=== PATIENT | female | born 1960 | race Caucasian/White ===

== ENCOUNTER → 2016-12-13 09:54 | Outpatient (CLI) | payer MEDICAID ==
[2016-04-30 09:56] VITALS: BMI 49.6
[~2016-12-13 09:54] MED LIST: BUPROPION HCL150 M1 PO; GLUCOPHAGE1000 MG PO; GLUCOTROL ER2.5 MG PO; HYDROCHLOROTHIA25 MG PO; LOTREL 5/20 MG1 CAP; PRAVACHOL20 MG PO; VOLTAREN75 MG PO
== END | disposition home or self-care (01) ==
LOC: D.US 12-10 14:00
DX: R60.0 Localized edema (principal)

== ENCOUNTER 2017-03-07 10:26 | Outpatient (CLI) | payer MEDICAID ==
[~2017-03-07] VITALS: Ht 170.2 cm; Wt 150.0 kg
--- NOTE | ~2017-03-07 | HEMODYNAMI ---
PATIENT:ROCIO ESQUIVEL MEDICAL RECORD: [id number] : 56 LOCATION:D.CAT ADMISSION DATE: 03/07/17 Generatedon:03/07/201714:08 Patient name: ROCIO ESQUIVEL Patient #: [id number] SSN: : 1960 Date of study: 03/07/2017 Page: Of Hemodynamic Procedure Report Patient Data Patient Demographics Procedure consent was obtained First Name: ROCIO Gender: Female Last Name: ALVIN : 1960 Middle Initial: E Age: 57 year(s) Patient #: [id number] Race: Unknown Additional ID: [id number] Contact details [address]: [address] [place] [address] State: [place] City: [place] Zip code: [address] Past Medical History Allergies: No known allergies Admission Admission Data Admission Date: 03/07/2017 Admission Time: 10:26 Lab Results Lab Result Date: 03/07/2017 Lab Result Time: 0:10 Biochemistry Name Units Result Min Max BUN mg/dl 18 --(---*)-- 7 18 Creatinine mg/dl 1.1 --(--*-)-- 0.6 1.3 CBC Name Units Result Min Max Hematocrit % 34.9 *-(----)-- 42 54 Hemoglobin g/dl 11.6 *-(----)-- 13.5 17.5 Procedure Procedure Types Cath Procedure Diagnostic Procedure [facility] w/Coronaries Miscellaneous Procedures Moderate Sedation up to 30 minutes Procedure Description Procedure Date Procedure Date: 03/07/2017 Procedure Start Time: 13:51 Procedure End Time: 14:08 Procedure Staff Name Function Nathan Mcmahon MD Performing Physician Kaye Ji RT Scrub Harrison Nelson RT Scrub Greg Tee RN Nurse Marion Jewell RT Monitor Agustin Thomas RT Monitor Procedure Data Cath Procedure Fluoroscopy Diagnostic fluoroscopy Total fluoroscopy Time: 4.3 time: 4.3 min min Diagnostic fluoroscopy Total fluoroscopy dose: 920 dose: 920 mGy mGy Contrast Material Contrast Material Type Amount (ml) Isovue 300 67 Entry Location Entry Primary Successful Side Size Upsize Upsize Entry Closure Olvera ccessful Closure Location (Fr) 1 (Fr) 2 (Fr) Remarks Device Remarks Radial Right 6 Fr Mechanical artery Short Compression Estimated blood loss: 5 ml Diagnostic catheters Device Type Used For End Catheter Placement Diagnostic Terumo 5Fr Procedure [place] 110cm catheter Diagnostic Infinity 5Fr Procedure Pigtail catheter Procedure Complications No complications Procedure Medications Medication Administration Route Dosage Oxygen NC 2 l/min Lidocaine 2% added to field 20 Heparin Flush Bag added to field 2 bags (1000units/500ml NS) 0.9% NaCl I.V. 100 ml/hr Versed I.V. 1 mg Fentanyl I.V. 50 mcg Versed I.V. 1 mg Fentanyl I.V. 50 mcg Radial Cocktail I.A. 1 syringe (Verapomil 2mg/Nitro 400mcg/Heparin 1500units) Hemodynamics Rest HGB: 11.6 (g/dl) Heart Rate: 76 (bpm) Pressure Samples Time Site Value (mmHg) Purpose Heart Use Rate(bpm) 13:56 LV 133/6,12 EDP 117 14:01 LV 131/3,22 Snapshot 86 14:02 AO 128/68(94) Pullback 85 14:02 LV 140/-3,19 Pullback 85 Gradients Valve Time Site 1 Site 2 Mean SEP/DFP Peak To Heart Use (mmHg) (sec/min) Peak Rate (mmHg) (bpm) Aortic 14:02 LV AO 10 25 12 85 140/-3,19 128/68(94) Calculations Valve P-P Mean Valve Index Valve Source Name Gradient Area Flow (cm2) Aortic 12 10 12 10 Snapshots Pre Cath Intra NCS Post Cath Vital Signs Time Heart Resp SPO2 etCO2 [id number] NIBP (mmHg) Rhythm Pain Sedation Rate (ipm) (%) (mmHg) (mmHg) Status Level (bpm) 13:30:16 77 23 98 0 0 157/56(103) NSR 0 (11) 10(A) , No pain 13:34:50 77 19 98 0 0 165/66(95) NSR 0 (11) 10(A) , No pain 13:39:35 76 18 94 0 0 138/66(105) NSR 0 (11) 10(A) , No pain 13:44:03 77 15 95 0 0 153/75(103) NSR 0 (11) 10(A) , No pain 13:48:40 80 16 97 0 0 140/73(104) NSR 0 (11) 10(A) , No pain 13:53:04 77 19 99 0 0 141/73(108) NSR 0 (11) 9(A) , No pain 13:57:28 81 17 97 0 0 139/69(97) NSR 0 (11) 9(A) , No pain 14:01:50 78 14 96 0 0 137/73(98) NSR 0 (11) 9(A) , No pain 14:06:19 82 16 98 0 0 155/74(107) NSR 0 (11) 10(A) , No pain Medications Time Medication Route Dose Verified Delivered Reason Notes Effectiveness by by 13:26:39 Oxygen NC 2 l/min Nathan Buffie used for Lisandro Tee RN procedure 13:26:46 Lidocaine 2% added 20ml Nathan Nathan for local to vial Lisandro Mcmahon MD anesthetic field 13:26:52 Heparin Flush added 2 bags Nathan Nathan used for Bag to Lisandro Mcmahon MD procedure (1000units/500ml field NS) 13:27:01 0.9% NaCl I.V. 100 Nathan Buffie Per ml/hr Lisandro Tee RN physician 13:39:36 Versed I.V. 1 mg Nathan Buffie for sedation Lisandro Tee RN 13:39:42 Fentanyl I.V. 50 mcg Nathan Buffie for sedation Lisandro Tee RN 13:51:20 Versed I.V. 1 mg Nathan Buffie for sedation Lisandro Tee RN 13:51:24 Fentanyl I.V. 50 mcg Nathan Buffie for sedation Lisandro Tee RN 13:53:36 Radial Cocktail I.A. 1 Nathan Nathan for (Verapomil syringe Lisandro Mcmahon MD vasodilation 2mg/Nitro 400mcg/Heparin 1500units) Procedure Log Time Note 13:13:14 Harrison Nelson RT(R) sent for patient. Start room use. 13:13:16 Time tracking: Regular hours 13:13:20 Plan of Care:Hemodynamics will remain stable., Cardiac rhythm will remain stable., Comfort level will be maintained., Respiratory function will remain adequate., Patient/ family verbilizes understanding of procedure., Procedure tolerated without complication., Recovers from procedure without complications.. 13:20:30 Patient received from Pre/Post Procedure Room to CCL 1 Alert and oriented. Tansferred to table in Supine position. 13:20:32 Warm blankets applied, and sarahi hugger turned on for patient comfort. 13:20:32 Correct patient and procedure confirmed by team. 13:20:34 Signed procedure consent form obtained from patient. 13:20:35 ECG and BP/O2 sat monitors applied to patient. 13:20:36 Full Disclosure recording started 13:26:39 Oxygen 2 l/min NC was administered by Greg Tee RN; used for procedure; 13:26:46 Lidocaine 2% 20ml vial added to field was administered by Nathan Mcmahon MD; for local anesthetic; 13:26:52 Heparin Flush Bag (1000units/500ml NS) 2 bags added to field was administered by Nathan Mcmahon MD; used for procedure; 13:27:01 0.9% NaCl 100 ml/hr I.V. was administered by Greg Tee RN; Per physician; 13:28:37 Vital chart was started 13:36:12 Baseline sample Acquired. 13:36:16 Rhythm: sinus rhythm 13:36:26 H&P Date Dictated: 03/07/2017 Within 30 days and on chart.. 13:36:27 Pre-procedure instructions explained to patient. 13:36:27 Pre-op teaching completed and patient verbalized understanding. 13:36:29 Family in patients room. 13:36:30 Patient NPO since Midnight. 13:36:37 Patient allergic to No known allergies 13:36:39 Is the patient allergic to Iodine/contrast media? No. 13:36:43 Is patient on blood thinner?No 13:37:10 Patient diabetic? Yes. 13:37:11 If diabetic: On Metformin? Yes 13:37:16 If on Metformin: Last Dose? 03/05/2017 13:37:20 Previous problem with sedation/anesthesia? No ? 13:37:21 Snore? Yes 13:37:22 Sleep apnea? Yes 13:37:23 Deviated septum? No 13:37:24 Opens mouth fully? Yes 13:37:24 Sticks out tongue? Yes 13:37:26 Airway obstruction? No ? 13:37:28 Dentures? No ? 13:37:36 Modified Sergio's test Ulnar < 7 seconds 13:37:38 Patient pain scale 0/10 ?. 13:37:43 IV patent on arrival in left hand with 0.9% NaCl at [facility]. 13:38:39 Lab Result : BUN 18 mg/dl 13:38:39 Lab Result : Creatinine 1.1 mg/dl 13:38:39 Lab Result : Hemoglobin 11.6 g/dl 13:38:39 Lab Result : Hematocrit 34.9 % 13:38:42 Lab results completed and on chart. 13:38:45 Right Radial & Right Groin area was prepped with chlora-prep and draped in sterile fashion 13:38:46 Alarms reviewed by R. N. 13:38:47 Sharps counted by scrub and verified by R.N. 13:39:12 Use device set Radial Dx 13:39:13 MBrace Wrist Support opened to sterile field. 13:39:14 Acist Manifold opened to sterile field. 13:39:15 Acist Hand Control opened to sterile field. 13:39:16 Acist Syringe opened to sterile field. 13:39:17 Medline Cath Pack opened to sterile field. 13:39:17 Bag Decanter opened to sterile field. 13:39:18 Terumo 6Fr Slender Glidesheath opened to sterile field. 13:39:18 St Karlo 260cm J .035 wire opened to sterile field. 13:39:18 Tegaderm 4 x 4 opened to sterile field. 13:39:24 Physician arrived 13:39:24 --------ALL STOP TIME OUT------ 13:39:25 Final Timeout: patient, procedure, and site verified with staff and physician. All members of the team are in agreement. 13:39:26 Right Radial & Right Groin site verified by team. 13:39:29 Physical assessment completed. ASA score P 2 - A patient with mild systemic disease as per Nathan Mcmahon MD. 13:39:32 Sedation plan: IV Moderate Sedation Versed, Fentanyl 13:39:36 Versed 1 mg I.V. was administered by Greg Tee RN; for sedation; 13:39:41 Zero performed for pressure channel P1 13:39:42 Fentanyl 50 mcg I.V. was administered by Greg Tee RN; for sedation; 13:51:04 Procedure started. 13:51:08 Local anesthetic to right radial artery with Lidocaine 2% by Nathan Mcmahon MD.INITIAL ACCESS ONLY 13:51:20 Versed 1 mg I.V. was administered by Greg Tee RN; for sedation; 13:51:22 A 6 Fr Short sheath was inserted into the Right Radial artery 13:51:24 Fentanyl 50 mcg I.V. was administered by Greg Tee RN; for sedation; 13:53:30 A Diagnostic Terumo 5Fr [place] 110cm catheter was advanced over the wire and used for Procedure. 13:53:36 Radial Cocktail (Verapomil 2mg/Nitro 400mcg/Heparin 1500units) 1 syringe I.A. was administered by Nathan Mcmahon MD; for vasodilation; 13:56:39 LV gram done using HARRISON 13:57:22 LCA angiography performed. 13:59:03 RCA angiography performed. 13:59:14 Catheter exchanged over wire. 13:59:23 A Diagnostic Infinity 5Fr Pigtail catheter was advanced over the wire and used for Procedure. 14:01:43 LV gram done using HARRISON 14:01:46 Injector settings: Ml/sec: 5, Volume: 15, 14:02:01 EF : 50 % 14:02:38 Catheter removed. 14:03:31 Terumo TR Band Large opened to sterile field. 14:04:07 Sheath removed intact; hemostasis achieved with Mechanical Compression to the Right Radial artery. 14:04:09 Procedure ended.(Physican Out) 14:05:19 Fluoroscopy time 04.30 minutes. 14:05:23 Flurop Dose total: 920 14:05:23 Fluoroscopy dose: 920 mGy 14:05:44 Contrast amount:Isovue 300 67ml. 14:06:06 Sharps counted by scrub and verified by R.N. 14:06:14 TR band inflated with 7cc of air. 14:06:15 Insertion/operative site no bleeding no hematoma. 14:06:18 Post Procedure Pulses reassessed and unchanged 14:06:21 Post-procedure physical assessment completed. ASA score P 2 - A patient with mild systemic disease as per Nathan Mcmahon MD. 14:06:24 Post procedure rhythm: unchanged. 14:06:27 Estimated blood loss: 5 ml 14:06:42 Post procedure instruction explained to patient.Patient verbalizes understanding. 14:06:43 Patient needs reinforcement of post procedure teaching. 14:06:57 Procedure type changed to Cath procedure, Diagnostic procedure, LHC, LHC w/Coronaries, Miscellaneous Procedures, Moderate Sedation up to 30 minutes 14:07:26 Cook 21G 4cm Radial Needle opened to sterile field. 14:07:55 Procedure and supply charges have been captured, reviewed, submitted and are correct. 14:07:58 Procedure Complication : No complications 14:08:00 Vital chart was stopped 14:08:00 See physician's report for complete and final results. 14:08:10 Report given to Pre/Post Procedure Room. 14:08:13 Patient transfered to Pre/Post Procedure Room with Stretcher. 14:08:15 Procedure ended. 14:08:15 Full Disclosure recording stopped 14:08:19 End room use (Document Last) Device Usage Item Name Manufacture Quantity Catalog Hospital Part Current Minimal Lot# / Number Charge Number Stock Stock Serial# Code [place] [address] 140-0250-00 042205 [id number] [id number] 5 Wrist Vascular Support Dynamics Acist Acist 1 48584 611444 001729 173264 5 Manifold [employer] Acist Hand Acist 1 09554 965863 395810 517638 5 Control [employer] Acist Acist 1 01430 081938 474923 501344 20 Syringe [employer] Inc Medline Cardinal 1 [id number] 986659 38984 360927 5 Cath Pack Health Bag Microtek 1 2001S 576965 46581 199523 5 [email or web address] Terumo 6Fr Terumo 1 [id number] 770128 102363 395052 [address]lo St Karlo 1 502338 182309 771589 314068 30 260cm J .035 wire Tegaderm 4 3M 1 1626W 609256 368127 498494 5 x 4 Diagnostic Terumo 1 40-3126 661601 491472 572470 5 Terumo 5Fr [place] 110cm catheter Diagnostic Cardinal 1 [id number] 703668 358668 455256 5 Transaq 5Fr Pigtail catheter Terumo TR Terumo 1 [id number] 628535 792009 562608 40 Band Large Cook 21G [facility] 1 [id number] 402916 294517 453387 5 4cm Radial Needle Signature Audit [place] Stage Time Signature Unsigned Intra-Procedure 03/07/2017 Agustin Thomas 2:08:55 PM RT(R) Signatures Monitor : Marion Signature : Counts RT Date : Time : Monitor : Agustin Thomas RT Signature : Date : Time : [address] [place] [address]
[2017-03-07] MEDS ORDERED: KAZANO 12.5-1,1 EACH PO (11:40)
[2017-03-07] MEDS ORDERED: FUROSEMIDE20 MG PO (11:41)
[2017-03-07] MEDS ORDERED: VISTARIL50 MG PO (11:42)
[2017-03-07] MEDS ORDERED: K-TAB10 MEQ PO (11:42)
[2017-03-07] MEDS ORDERED: VITAMIN B-1000 MCG/M IM (11:43)
[2017-03-07] MEDS ORDERED: VITAMIN D5000 UNIT PO (11:44)
[2017-03-07 11:54] VITALS: BP 138/53; Ht 170.2 cm; Wt 150.0 kg
[2017-03-07 12:08] LABS: ANION GAP 15.2 mmol/L (8-16); CALCIUM 9.2 mg/dL (8.5-10.1); CARBON DIOXIDE 26.4 mmol/L (21.0-32.0); CREATININE - SERUM 1.1 mg/dL (0.6-1.3); POTASSIUM - SERUM 4.6 mmol/L (3.5-5.1)
[2017-03-07 12:18] LABS: BASOPHILS 0.3 % (0-2); HEMATOCRIT 34.9 % (36.0-48.0); HEMOGLOBIN 11.6 g/dL (12-16); IMMATURE GRANULOCYTES 0.1 % (0-5); LYMPHOCYTES 22.9 % (15-50); MCH 29.1 pg (26.0-34.0); MCHC 33.2 g/dL (31.0-37.0); MCV 87.5 fL (80.0-100.0); MEAN PLATELET VOLUME 9.2 fL (7.4-10.4); MONOCYTES 6.2 % (2-11); NEUTROPHILS 64.5 % (40-80); PLATELET COUNT 234 10x3/uL (130-400); RBC 3.99 10x6/uL (4.00-5.40); RDW 13.5 % (11.5-14.5); WBC 6.8 10x3/uL (4.8-10.8)
--- NOTE | 2017-03-07 14:45 | NUR ---
TR BAND TO RIGHT WRIST- CDI, NO BLEEDING AT SITE. DAUGHTER AT SIDE
--- NOTE | 2017-03-07 15:00 | NUR ---
NO CHANGES NOTED, RESTING, TR BAND CDI.
--- NOTE | 2017-03-07 16:30 | NUR ---
IV D'C WITH CATH TIP INTACT, D'C HOME WITH DAUGHTER, WRITTEN AND VERBAL D'C INSTRUCTIONS GIVEN
== END 2017-03-07 16:30 | disposition home or self-care (01) ==
LOC: D.CATH 10:26
PROVIDERS: Internal Medicine Cardiovascular Disease
DX: I20.9 Angina pectoris, unspecified (principal); I10 Essential (primary) hypertension; R60.9 Edema, unspecified; E78.5 Hyperlipidemia, unspecified; Z01.812 Encounter for preprocedural laboratory examination; R94.30 Abnormal result of cardiovascular function study, unspecified

== ENCOUNTER → 2017-10-25 14:46 | Outpatient (CLI) | payer MEDICARE ==
[2017-03-07 11:54] VITALS: BMI 51.8
[~2017-10-25 14:46] MED LIST changes: +FUROSEMIDE20 MG PO; +K-TAB10 MEQ PO; +KAZANO 12.5-1,1 EACH PO; +VISTARIL50 MG PO; +VITAMIN B-1000 MCG/M IM; +VITAMIN D5000 UNIT PO
== END | disposition home or self-care (01) ==
LOC: D.CT 14:46
DX: R91.1 Solitary pulmonary nodule (principal); Z12.31 Encounter for screening mammogram for malignant neoplasm of breast